=== PATIENT | female | born 1985 | race African-American/Black ===

== ENCOUNTER 2017-10-26 08:44 | Emergency (ER) | payer SELFPAY ==
[~2017-10-26] VITALS: Ht 154.9 cm; Wt 83.8 kg
[2017-10-26 09:38] LABS: HEMATOCRIT 41.4 % (36.0-46.0); HEMOGLOBIN 13.8 G/DL (11.9-15.5); MCH 30.9 PG (29.0-34.0); MCHC 33.3 G/DL (30.0-36.0); MCV 92.6 FL (83-99); RBC DIS.WIDTH-CV 13.4 % (11.8-14.6); RBC DIS.WIDTH-SD 45.6 % (39-53); RED BLOOD COUNT 4.47 M/uL (3.80-5.20); WHITE BLOOD COUNT 6.6 K/uL (4.1-10.2)
[2017-10-26 09:49] LABS: CHLORIDE 107 mEq/L (99-109); POTASSIUM 3.6 mEq/L (3.7-5.4); SODIUM 140 mEq/L (136-147)
[2017-10-26 09:50] LABS: GLUCOSE 101 mg/dL (70-99)
[2017-10-26 09:55] LABS: APPEARANCE CLOUDY ((CLEAR)); BILIRUBIN NEGATIVE; BLOOD SMALL; COLOR YELLOW ((YELLOW)); GLUCOSE (STRIP) NEGATIVE; KETONES NEGATIVE; LEUKOCYTES NEGATIVE; NITRITE NEGATIVE; PROTEIN (STRIP) NEGATIVE; SPECIFIC GRAVITY 1.021 (1.000-1.030); UROBILINOGEN 0.2 MG/DL (0.2-1.0)
[2017-10-26 09:58] LABS: CREATININE 0.8 mg/dL (0.6-1.3); GFR ESTIMATE (CALCULATED) > 59 mL/min/; UREA NITROGEN (BUN) 8 mg/dL (9-23)
[2017-10-26 10:08] LABS: BACTERIA 2+ /HPF; EPITHELIAL CELLS 1+ /HPF; MUCUS 2+ /LPF; UCUL ADDED? YES; WHITE BLOOD CELLS 0-5 /HPF (0-5)
[2017-10-26 10:13] LABS: QUANTITATIVE HCG < 4.0 MIU/ML
[2017-10-26 10:18] LABS: PLAT.SUFFICIENCY ADEQUATE; PLATELET COUNT 243 K/uL (156-360)
[2017-10-26] MEDS ORDERED: FLEXERIL10 MG PO (14:46)
[2017-10-26] MEDS ORDERED: TYLENOL WITH C1 EACH PO (14:46)
[2017-10-26 15:01] VITALS: BP 126/78
== END 2017-10-26 15:03 | disposition home or self-care (01) ==
LOC: EME 08:44
DX: N83.201 Unspecified ovarian cyst, right side (principal); M54.5 Low back pain; T14.8XXA Other injury of unspecified body region, initial encounter
CPT/HCPCS: 74176; 76856; 80048; 81003; 84702; 85027; 87086; 99281; 99284

== ENCOUNTER 2018-01-24 18:37 | Emergency (ER) | payer SELFPAY ==
[~2018-01-24] VITALS: Ht 157.5 cm; Wt 83.8 kg
[~2018-01-24 18:37] MED LIST: FLEXERIL10 MG PO; TYLENOL WITH C1 EACH PO
[2018-01-24] MEDS ORDERED: NAPROSYN500 MG PO (20:52)
[2018-01-24] MEDS ORDERED: SKELAXIN800 MG PO (20:52)
[2018-01-24] MEDS ORDERED: TRAMADOL HCL50 MG PO (20:52)
[2018-01-24 21:45] VITALS: BP 159/100
== END 2018-01-24 21:30 | disposition home or self-care (01) ==
LOC: EME 18:37
DX: M75.52 Bursitis of left shoulder (principal); M25.812 Other specified joint disorders, left shoulder; G43.909 Migraine, unspecified, not intractable, without status migrainosus
CPT/HCPCS: 73030; 99281; 99284; J1885; J7512